=== PATIENT | female | born 1970 | race Caucasian/White ===

== ENCOUNTER 2017-06-17 00:03 | Emergency (ER) | payer SELFPAY, OTHER | END 2017-06-17 03:10 | disposition left against medical advice (07) | LOC: E/R 00:03 | DX: Z53.21 Procedure and treatment not carried out due to patient leaving prior to being seen by health care provider (principal) | CPT/HCPCS: 93005 ==

== ENCOUNTER 2017-10-04 16:36 | Emergency (ER) | payer OTHER ==
[2017-10-04] MEDS: ONDANSETRON 4 MG INJ IV (18:02)
[2017-10-04 18:54] LABS: ADD MAN DIFF? NO
[2017-10-04] MEDS: SOD CHLORIDE 0.9% 1,000 ML IV (18:54)
[2017-10-04 19:00] LABS: BASOPHILS % 0.1 % (0.0-2.0); EOSINOPHILS # 0.1 10^3/ul (0.0-0.5); EOSINOPHILS % 1.6 % (0.0-7.0); HEMOGLOBIN 10.9 g/dl (12.0-16.0); MEAN CORPUSCULAR HEMOGLOBIN 24.1 pg (29.0-33.0); MEAN CORPUSCULAR HGB CONC 30.3 g/dl (32.0-37.0); MEAN CORPUSCULAR VOLUME 79.5 fl (82.0-101.0); MONOCYTE # 0.5 10^3/ul (0.3-0.9); MONOCYTES % 7.2 % (0.0-11.0); NEUTROPHIL # 4.7 10^3/ul (1.6-7.5); NEUTROPHILS % 63.6 % (39.0-77.0); PLATELET COUNT 268 10^3/UL (140-415); RED BLOOD COUNT 4.53 10^6/ul (4.20-5.40); RED CELL DISTRIBUTION WIDTH 16.1 % (11.5-14.5)
[2017-10-04 19:00] LABS: WHITE BLOOD COUNT 7.4 10^3/ul (4.8-10.8)
[2017-10-04] MEDS: KETOROLAC 15 MG INJ IV ×2 (19:04→21:50)
[2017-10-04 19:23] LABS: ADD UMIC NO; UR ASCORBIC ACID NEGATIVE (NEGATIVE); UR BILIRUBIN (Dip) NEGATIVE (NEGATIVE); UR BLOOD (Dip) NEGATIVE (NEGATIVE); UR CLARITY CLEAR (CLEAR); UR COLOR STRAW (YELLOW); UR GLUCOSE (Dip) NEGATIVE (NEGATIVE); UR KETONES (Dip) NEGATIVE (NEGATIVE); UR LEUKOCYTE ESTERASE (Dip) NEGATIVE Leu/ul (NEGATIVE); UR NITRITE (Dip) NEGATIVE (NEGATIVE); UR SPECIFIC GRAVITY (Dip) 1.011 (1.003-1.030); UR TOTAL PROTEIN (Dip) NEGATIVE (NEGATIVE); UR UROBILINOGEN (Dip) NEGATIVE (NEGATIVE)
[2017-10-04 19:34] LABS: ALANINE AMINOTRANSFERASE 41 IU/L (13-69); ALBUMIN 3.9 g/dl (3.3-4.9); ALBUMIN/GLOBULIN RATIO 1.02; ALKALINE PHOSPHATASE 81 IU/L (42-121); ANION GAP 13 (8-16); ASPARTATE AMINO TRANSFERASE 37 IU/L (15-46); BILIRUBIN,INDIRECT 0.3 mg/dl (0-1.1); BILIRUBIN,TOTAL 0.3 mg/dl (0.2-1.3); BLOOD UREA NITROGEN 13 mg/dl (7-20); CALCIUM 9.1 mg/dl (8.4-10.2); CARBON DIOXIDE 28 mmol/L (21-31); CHLORIDE 110 mmol/L (97-110); CREATININE 0.91 mg/dl (0.44-1.00); GLUCOSE 108 mg/dl (70-220); LIPASE 123 U/L (23-300); POTASSIUM 4.3 mmol/L (3.5-5.1); SODIUM 147 mmol/L (135-144); TOTAL PROTEIN 7.7 g/dl (6.1-8.1)
== END 2017-10-04 22:46 | disposition home or self-care (01) ==
LOC: FTE 16:36
DX: R10.31 Right lower quadrant pain (principal); I10 Essential (primary) hypertension; I25.10 Atherosclerotic heart disease of native coronary artery without angina pectoris; R19.07 Generalized intra-abdominal and pelvic swelling, mass and lump; R10.2 Pelvic and perineal pain
CPT/HCPCS: 74176; 80053; 81003; 81025; 83690; 85025; 96374; 96375; 96376; 99285-25

== ENCOUNTER 2017-12-04 16:24 | Emergency (ER) | payer OTHER ==
[2017-12-04 17:56] LABS: ADD UMIC YES; UR ASCORBIC ACID NEGATIVE (NEGATIVE); UR BACTERIA FEW /HPF (NONE SEEN); UR BILIRUBIN (Dip) NEGATIVE (NEGATIVE); UR BLOOD (Dip) 3+ mg/dL (NEGATIVE); UR CLARITY SLIGHTLY CLOUDY (CLEAR); UR COLOR YELLOW (YELLOW); UR GLUCOSE (Dip) NEGATIVE (NEGATIVE); UR KETONES (Dip) NEGATIVE (NEGATIVE); UR LEUKOCYTE ESTERASE (Dip) NEGATIVE Leu/ul (NEGATIVE); UR NITRITE (Dip) NEGATIVE (NEGATIVE); UR RBC 71 /HPF (0-5); UR SPECIFIC GRAVITY (Dip) 1.025 (1.003-1.030); UR SQUAMOUS EPITHELIAL CELL FEW /HPF (FEW); UR TOTAL PROTEIN (Dip) NEGATIVE (NEGATIVE); UR UROBILINOGEN (Dip) 1+ mg/dL (NEGATIVE); UR WBC 3 /HPF (0-5)
[2017-12-04] MEDS: KETOROLAC 30 MG INJ IM (18:14)
== END 2017-12-04 19:16 | disposition home or self-care (01) ==
LOC: FTE 16:24
DX: N83.201 Unspecified ovarian cyst, right side (principal); I10 Essential (primary) hypertension; I25.10 Atherosclerotic heart disease of native coronary artery without angina pectoris
CPT/HCPCS: 76775; 76830; 76856; 81001; 81025; 96372; 99285-25

== ENCOUNTER 2017-12-07 17:03 | Emergency (ER) | payer OTHER ==
[2017-12-07] MEDS: ONDANSETRON 4 MG INJ IV ×2 (19:25→20:51)
[2017-12-07] MEDS: KETOROLAC 30 MG INJ IV (19:27)
[2017-12-07] MEDS: SOD CHLORIDE 0.9% 1,000 ML IV (19:31)
[2017-12-07 19:39] LABS: ADD MAN DIFF? NO
[2017-12-07 19:40] LABS: BASOPHILS % 0.2 % (0.0-2.0); EOSINOPHILS # 0.1 10^3/ul (0.0-0.5); EOSINOPHILS % 1.3 % (0.0-7.0); HEMATOCRIT 36.9 % (37.0-47.0); HEMOGLOBIN 11.2 g/dl (12.0-16.0); LYMPHOCYTES # 2.1 10^3/ul (0.8-2.9); LYMPHOCYTES % 21.5 % (15.0-51.0); MEAN CORPUSCULAR HEMOGLOBIN 24.2 pg (29.0-33.0); MEAN CORPUSCULAR HGB CONC 30.4 g/dl (32.0-37.0); MEAN CORPUSCULAR VOLUME 79.7 fl (82.0-101.0); MEAN PLATELET VOLUME 10.2 fl (7.4-10.4); MONOCYTE # 0.7 10^3/ul (0.3-0.9); MONOCYTES % 7.6 % (0.0-11.0); NEUTROPHIL # 6.6 10^3/ul (1.6-7.5); PLATELET COUNT 282 10^3/UL (140-415); RED BLOOD COUNT 4.63 10^6/ul (4.20-5.40); RED CELL DISTRIBUTION WIDTH 15.7 % (11.5-14.5)
[2017-12-07 19:40] LABS: WHITE BLOOD COUNT 9.6 10^3/ul (4.8-10.8)
[2017-12-07 19:56] LABS: ALANINE AMINOTRANSFERASE 32 IU/L (13-69); ALBUMIN 4.1 g/dl (3.3-4.9); ALKALINE PHOSPHATASE 74 IU/L (42-121); ANION GAP 14 (8-16); ASPARTATE AMINO TRANSFERASE 29 IU/L (15-46); BILIRUBIN,INDIRECT 0.3 mg/dl (0-1.1); BILIRUBIN,TOTAL 0.3 mg/dl (0.2-1.3); BLOOD UREA NITROGEN 11 mg/dl (7-20); CALCIUM 8.7 mg/dl (8.4-10.2); CARBON DIOXIDE 30 mmol/L (21-31); CHLORIDE 103 mmol/L (97-110); CREATININE 0.74 mg/dl (0.44-1.00); GLUCOSE 87 mg/dl (70-220); LIPASE 62 U/L (23-300); POTASSIUM 3.8 mmol/L (3.5-5.1); SODIUM 143 mmol/L (135-144); TOTAL PROTEIN 7.5 g/dl (6.1-8.1)
[2017-12-07 20:05] LABS: INR 0.94; PROTIME 12.7 Sec (11.9-14.9)
[2017-12-07 20:06] LABS: PARTIAL THROMBOPLASTIN TIME 26.4 Sec (25.0-35.0)
[2017-12-07 20:08] LABS: TROPONIN-I < 0.012 ng/ml (0.000-0.120)
[2017-12-07] MEDS: IOHEXOL 300MG/ML 150 ML BTL (20:17)
[2017-12-07] MEDS: SOD CHLORIDE 0.9% 100 ML (20:17)
== END 2017-12-07 23:13 | disposition home or self-care (01) ==
LOC: FTE 17:03
DX: R10.2 Pelvic and perineal pain (principal); I10 Essential (primary) hypertension; I25.10 Atherosclerotic heart disease of native coronary artery without angina pectoris
CPT/HCPCS: 36415; 74177; 80053; 81025; 83690; 84484; 85025; 85610; 85730; 93005; 96361; 96374; 96375; 96376; 99285-25

== ENCOUNTER 2017-12-15 18:32 | Emergency (ER) | payer OTHER ==
[2017-12-15] MEDS: IBUPROFEN 600 MG TAB PO (23:36)
== END 2017-12-16 00:21 | disposition home or self-care (01) ==
LOC: E/R 12-16 00:21
DX: R51 Headache (principal); I10 Essential (primary) hypertension; I25.10 Atherosclerotic heart disease of native coronary artery without angina pectoris; R42 Dizziness and giddiness; R40.2142 Coma scale, eyes open, spontaneous, at arrival to emergency department; R40.2252 Coma scale, best verbal response, oriented, at arrival to emergency department; R40.2362 Coma scale, best motor response, obeys commands, at arrival to emergency department
CPT/HCPCS: 70450; 93005; 99284-25

== ENCOUNTER 2017-12-22 11:16 | Emergency (ER) | payer OTHER ==
[2017-12-22 12:25] LABS: TROPONIN-I < 0.010 ng/ml (0.000-0.120)
== END 2017-12-22 13:02 | disposition home or self-care (01) ==
LOC: E/R 11:16
DX: R07.9 Chest pain, unspecified (principal); R20.2 Paresthesia of skin; I10 Essential (primary) hypertension; E66.9 Obesity, unspecified; Z68.41 Body mass index [BMI] 40.0-44.9, adult
CPT/HCPCS: 36415; 84484; 99283

== ENCOUNTER 2018-02-25 01:53 | Observation (INO) | payer OTHER ==
[2018-02-25] MEDS ORDERED: ONDANSETRON 4 MG INJ IV ×2 (02:30→07:30)
[2018-02-25] MEDS ORDERED: NITROGLYCERIN (SL) 0.4 MG TAB SL ×2 (02:30→07:30)
[2018-02-25 03:09] LABS: ADD MAN DIFF? NO
[2018-02-25 03:15] LABS: WHITE BLOOD COUNT 6.5 10^3/ul (4.8-10.8)
[2018-02-25 03:15] LABS: BASOPHILS % 0.3 % (0.0-2.0); EOSINOPHILS # 0.1 10^3/ul (0.0-0.5); EOSINOPHILS % 1.5 % (0.0-7.0); HEMOGLOBIN 11.1 g/dl (12.0-16.0); LYMPHOCYTES # 1.7 10^3/ul (0.8-2.9); LYMPHOCYTES % 26.7 % (15.0-51.0); MEAN CORPUSCULAR VOLUME 79.9 fl (82.0-101.0); MEAN PLATELET VOLUME 10.3 fl (7.4-10.4); MONOCYTE # 0.5 10^3/ul (0.3-0.9); MONOCYTES % 8.3 % (0.0-11.0); NEUTROPHIL # 4.1 10^3/ul (1.6-7.5); NEUTROPHILS % 62.7 % (39.0-77.0); PLATELET COUNT 277 10^3/UL (140-415); RED BLOOD COUNT 4.63 10^6/ul (4.20-5.40)
[2018-02-25] MEDS: ACETAMINOPHEN 325 MG TAB PO ×2 (03:44→22:37)
[2018-02-25 03:45] LABS: CREATINE KINASE 53 IU/L (23-200)
[2018-02-25 03:51] LABS: TROPONIN-I < 0.012 ng/ml (0.000-0.120)
[2018-02-25 04:53] LABS: ANION GAP 12 (8-16); BLOOD UREA NITROGEN 13 mg/dl (7-20); CALCIUM 8.7 mg/dl (8.4-10.2); CARBON DIOXIDE 27 mmol/L (21-31); CHLORIDE 110 mmol/L (97-110); CREATININE 0.87 mg/dl (0.44-1.00); GLUCOSE 129 mg/dl (70-220); POTASSIUM 3.6 mmol/L (3.5-5.1); SODIUM 145 mmol/L (135-144)
[2018-02-25] MEDS ORDERED: NACL 0.9% 3 ML SYG IV (07:30)
[2018-02-25] MEDS ORDERED: ALBUTEROL/IPRATROPIUM (NEB) 3 ML AMP HHN (07:30)
[2018-02-25] MEDS: AMLODIPINE 10 MG TAB PO (08:19)
[2018-02-25] MEDS: ASPIRIN 81 MG TAB PO (08:19)
[2018-02-25] MEDS: LISINOPRIL 20 MG TAB PO (08:21)
[2018-02-25] MEDS: ENOXAPARIN 40 MG/0.4 ML SYG SC (08:23)
[2018-02-25 09:11] LABS: CK INDEX 0.4; CK-MB 0.23 ng/ml (0.0-2.4)
[2018-02-25 09:38] LABS: CREATINE KINASE 50 IU/L (23-200)
[2018-02-25 09:48] LABS: CK INDEX 0.5; CK-MB 0.27 ng/ml (0.0-2.4); TROPONIN-I < 0.012 ng/ml (0.000-0.120)
[2018-02-25 14:44] LABS: CREATINE KINASE 51 IU/L (23-200)
[2018-02-25 14:55] LABS: CK INDEX 0.5; CK-MB 0.24 ng/ml (0.0-2.4); TROPONIN-I < 0.012 ng/ml (0.000-0.120)
[2018-02-25] MEDS: GUAIFENESIN/DM 5ML CUP PO (20:56)
[2018-02-26 06:03] LABS: ADD MAN DIFF? NO
[2018-02-26] MEDS: ACETAMINOPHEN 325 MG TAB PO (06:17)
[2018-02-26 06:18] LABS: BASOPHILS % 0.3 % (0.0-2.0); EOSINOPHILS # 0.1 10^3/ul (0.0-0.5); HEMOGLOBIN 11.4 g/dl (12.0-16.0); LYMPHOCYTES # 1.9 10^3/ul (0.8-2.9); LYMPHOCYTES % 31.5 % (15.0-51.0); MEAN PLATELET VOLUME 10.3 fl (7.4-10.4); MONOCYTE # 0.6 10^3/ul (0.3-0.9); MONOCYTES % 9.8 % (0.0-11.0); NEUTROPHIL # 3.4 10^3/ul (1.6-7.5); NEUTROPHILS % 55.7 % (39.0-77.0); PLATELET COUNT 271 10^3/UL (140-415); RED BLOOD COUNT 4.75 10^6/ul (4.20-5.40); RED CELL DISTRIBUTION WIDTH 15.5 % (11.5-14.5)
[2018-02-26 06:18] LABS: WHITE BLOOD COUNT 6.1 10^3/ul (4.8-10.8)
[2018-02-26 06:39] LABS: IRON 42 ug/dl (35-150)
[2018-02-26 06:50] LABS: % IRON SATURATION 11 % SAT (22-52); TOTAL IRON BINDING CAPACITY 369 ug/dl (241-421)
[2018-02-26 06:54] LABS: ALANINE AMINOTRANSFERASE 71 IU/L (13-69); ALBUMIN 3.6 g/dl (3.3-4.9); ALKALINE PHOSPHATASE 98 IU/L (42-121); ANION GAP 9 (8-16); ASPARTATE AMINO TRANSFERASE 63 IU/L (15-46); BILIRUBIN,INDIRECT 0.1 mg/dl (0-1.1); BILIRUBIN,TOTAL 0.1 mg/dl (0.2-1.3); BLOOD UREA NITROGEN 10 mg/dl (7-20); CALCIUM 8.7 mg/dl (8.4-10.2); CARBON DIOXIDE 29 mmol/L (21-31); CHLORIDE 109 mmol/L (97-110); CREATININE 0.73 mg/dl (0.44-1.00); GLUCOSE 119 mg/dl (70-220); MAGNESIUM 2.1 mg/dl (1.7-2.5); POTASSIUM 3.9 mmol/L (3.5-5.1); SODIUM 143 mmol/L (135-144); TOTAL PROTEIN 7.2 g/dl (6.1-8.1)
[2018-02-26] MEDS: AMLODIPINE 10 MG TAB PO (08:51)
[2018-02-26] MEDS: LISINOPRIL 20 MG TAB PO (08:51)
[2018-02-26] MEDS: ASPIRIN 81 MG TAB PO (08:51)
[2018-02-26] MEDS: ENOXAPARIN 40 MG/0.4 ML SYG SC (09:01)
== END 2018-02-26 18:05 | disposition home or self-care (01) ==
LOC: 6WM 01:53
DX: R07.89 Other chest pain (principal); I10 Essential (primary) hypertension; E66.01 Morbid (severe) obesity due to excess calories; Z68.41 Body mass index [BMI] 40.0-44.9, adult; Z79.82 Long term (current) use of aspirin; R94.31 Abnormal electrocardiogram [ECG] [EKG]; I45.10 Unspecified right bundle-branch block; D64.9 Anemia, unspecified
CPT/HCPCS: 80048; 80053; 82550; 82553; 82728; 83540; 83735; 84443; 84484; 85025; 93005; 93306; 99217; G0378

== ENCOUNTER 2018-08-16 18:06 | Emergency (ER) | payer OTHER ==
[2018-08-16] MEDS: morphine 4 MG/ML VIAL IV (19:31)
[2018-08-16] MEDS: ONDANSETRON 4 MG INJ IV ×2 (19:31→20:45)
[2018-08-16 19:36] LABS: ADD MAN DIFF? NO
[2018-08-16 19:37] LABS: BASOPHILS % 0.4 % (0.0-2.0); EOSINOPHILS # 0.1 10^3/ul (0.0-0.5); EOSINOPHILS % 1.5 % (0.0-7.0); HEMATOCRIT 38.6 % (37.0-47.0); HEMOGLOBIN 11.7 g/dl (12.0-16.0); LYMPHOCYTES # 1.8 10^3/ul (0.8-2.9); LYMPHOCYTES % 22.9 % (15.0-51.0); MEAN CORPUSCULAR HEMOGLOBIN 23.8 pg (29.0-33.0); MEAN CORPUSCULAR HGB CONC 30.3 g/dl (32.0-37.0); MEAN CORPUSCULAR VOLUME 78.5 fl (82.0-101.0); MEAN PLATELET VOLUME 9.9 fl (7.4-10.4); MONOCYTE # 0.8 10^3/ul (0.3-0.9); MONOCYTES % 9.6 % (0.0-11.0); NEUTROPHIL # 5.2 10^3/ul (1.6-7.5); NEUTROPHILS % 65.2 % (39.0-77.0); PLATELET COUNT 263 10^3/UL (140-415); RED BLOOD COUNT 4.92 10^6/ul (4.20-5.40); RED CELL DISTRIBUTION WIDTH 16.6 % (11.5-14.5); URINE BLOOD (Dip) POC 2+ (NEGATIVE); URINE GLUCOSE (Dip) POC Negative (NEGATIVE); URINE KETONES (Dip) POC Negative (NEGATIVE); URINE LEUKOCYTE EST (Dip) POC Negative (NEGATIVE); URINE NITRITE (Dip) POC Negative (NEGATIVE); URINE TOTAL PROTEIN POC Trace (NEGATIVE)
[2018-08-16 19:54] LABS: ANION GAP 7 (5-13); BLOOD UREA NITROGEN 14 mg/dl (7-20); CALCIUM 9.2 mg/dl (8.4-10.2); CARBON DIOXIDE 27 mmol/L (21-31); CHLORIDE 107 mmol/L (97-110); CREATININE 0.65 mg/dl (0.44-1.00); Estimated GFR > 60 mL/min (>60); GLUCOSE 89 mg/dl (70-220); POTASSIUM 3.8 mmol/L (3.5-5.1); SODIUM 141 mmol/L (135-144)
== END 2018-08-16 22:50 | disposition home or self-care (01) ==
LOC: E/R 18:06
DX: N83.202 Unspecified ovarian cyst, left side (principal); I10 Essential (primary) hypertension; I25.10 Atherosclerotic heart disease of native coronary artery without angina pectoris; Z79.82 Long term (current) use of aspirin
CPT/HCPCS: 36415; 74176; 76830; 76856; 80048; 81003; 81025; 84702; 85025; 96374; 96375; 96376; 99285-25

== ENCOUNTER 2019-01-23 18:46 | Emergency (ER) | payer OTHER ==
[2019-01-23 19:27] LABS: ADD MAN DIFF? NO
[2019-01-23] MEDS: ONDANSETRON 4 MG INJ IV (19:27)
[2019-01-23] MEDS: morphine 2 MG INJ IV (19:27)
[2019-01-23] MEDS: NITROGLYCERIN 2% 1 GM OINT PKT TD (19:27)
[2019-01-23] MEDS: ASPIRIN 325 MG TAB PO (19:27)
[2019-01-23 19:35] LABS: WHITE BLOOD COUNT 7.5 10^3/ul (4.8-10.8)
[2019-01-23 19:35] LABS: BASOPHILS % 0.1 % (0.0-2.0); EOSINOPHILS # 0.1 10^3/ul (0.0-0.5); EOSINOPHILS % 1.1 % (0.0-7.0); HEMOGLOBIN 12.4 g/dl (12.0-16.0); LYMPHOCYTES # 2.2 10^3/ul (0.8-2.9); LYMPHOCYTES % 30.1 % (15.0-51.0); MEAN CORPUSCULAR HGB CONC 30.2 g/dl (32.0-37.0); MEAN CORPUSCULAR VOLUME 82.7 fl (82.0-101.0); MEAN PLATELET VOLUME 9.6 fl (7.4-10.4); MONOCYTE # 0.6 10^3/ul (0.3-0.9); MONOCYTES % 7.4 % (0.0-11.0); NEUTROPHIL # 4.5 10^3/ul (1.6-7.5); NEUTROPHILS % 60.4 % (39.0-77.0); PLATELET COUNT 292 10^3/UL (140-415); RED BLOOD COUNT 4.96 10^6/ul (4.20-5.40); RED CELL DISTRIBUTION WIDTH 15.2 % (11.5-14.5)
[2019-01-23 19:56] LABS: ANION GAP 8 (5-13); BLOOD UREA NITROGEN 15 mg/dl (7-20); CALCIUM 9.3 mg/dl (8.4-10.2); CARBON DIOXIDE 31 mmol/L (21-31); CHLORIDE 104 mmol/L (97-110); CREATININE 0.97 mg/dl (0.44-1.00); Estimated GFR > 60 mL/min (>60); GLUCOSE 109 mg/dl (70-220); POTASSIUM 3.8 mmol/L (3.5-5.1); SODIUM 143 mmol/L (135-144)
[2019-01-23 20:07] LABS: TROPONIN-I < 0.012 ng/ml (0.000-0.120)
[2019-01-23] MEDS ORDERED: ONDANSETRON 4 MG INJ IV (21:00)
[2019-01-23] MEDS ORDERED: ACETAMINOPHEN 325 MG TAB PO (21:00)
[2019-01-23] MEDS: morphine 4 MG/ML VIAL IV (21:52)
[2019-01-24] MEDS ORDERED: NITROGLYCERIN (SL) 0.4 MG TAB SL (00:30)
[2019-01-24] MEDS ORDERED: ALBUTEROL/IPRATROPIUM (NEB) 3 ML AMP HHN (00:30)
[2019-01-24] MEDS ORDERED: ONDANSETRON 4 MG INJ IV (00:30)
[2019-01-24] MEDS ORDERED: ALBUTEROL HFA 8 GM INHALER INH (00:30)
[2019-01-24] MEDS ORDERED: ACETAMINOPHEN 325 MG TAB PO (00:30)
[2019-01-24] MEDS ORDERED: NACL 0.9% 3 ML SYG IV (00:30)
[2019-01-24] MEDS: DIPHENHYDRAMINE 50 MG INJ IV (00:52)
[2019-01-24 01:18] LABS: CREATINE KINASE 63 IU/L (23-200)
[2019-01-24 01:31] LABS: CK-MB 0.62 ng/ml (0.0-2.4); TROPONIN-I < 0.012 ng/ml (0.000-0.120)
[2019-01-24 07:28] LABS: ADD MAN DIFF? NO
[2019-01-24 07:30] LABS: WHITE BLOOD COUNT 6.5 10^3/ul (4.8-10.8)
[2019-01-24 07:30] LABS: BASOPHILS % 0.3 % (0.0-2.0); EOSINOPHILS # 0.1 10^3/ul (0.0-0.5); EOSINOPHILS % 1.5 % (0.0-7.0); HEMATOCRIT 38.4 % (37.0-47.0); HEMOGLOBIN 11.5 g/dl (12.0-16.0); LYMPHOCYTES # 1.8 10^3/ul (0.8-2.9); LYMPHOCYTES % 28.3 % (15.0-51.0); MEAN CORPUSCULAR HEMOGLOBIN 25.2 pg (29.0-33.0); MEAN CORPUSCULAR HGB CONC 29.9 g/dl (32.0-37.0); MEAN CORPUSCULAR VOLUME 84.2 fl (82.0-101.0); MEAN PLATELET VOLUME 9.7 fl (7.4-10.4); MONOCYTE # 0.6 10^3/ul (0.3-0.9); MONOCYTES % 9.5 % (0.0-11.0); NEUTROPHIL # 3.9 10^3/ul (1.6-7.5); NEUTROPHILS % 59.8 % (39.0-77.0); PLATELET COUNT 260 10^3/UL (140-415); RED BLOOD COUNT 4.56 10^6/ul (4.20-5.40); RED CELL DISTRIBUTION WIDTH 15.2 % (11.5-14.5)
[2019-01-24 07:34] LABS: CREATINE KINASE 57 IU/L (23-200)
[2019-01-24 07:44] LABS: CK-MB 0.56 ng/ml (0.0-2.4); TROPONIN-I < 0.012 ng/ml (0.000-0.120)
[2019-01-24 08:11] LABS: HEMOGLOBIN A1C 5.4 % (0-5.9)
[2019-01-24 08:12] LABS: ALANINE AMINOTRANSFERASE 43 IU/L (13-69); ALBUMIN 3.4 g/dl (3.3-4.9); ALKALINE PHOSPHATASE 73 IU/L (42-121); ANION GAP 7 (5-13); ASPARTATE AMINO TRANSFERASE 62 IU/L (15-46); BILIRUBIN,INDIRECT 0.3 mg/dl (0-1.1); BILIRUBIN,TOTAL 0.3 mg/dl (0.2-1.3); BLOOD UREA NITROGEN 18 mg/dl (7-20); CALCIUM 8.4 mg/dl (8.4-10.2); CARBON DIOXIDE 28 mmol/L (21-31); CHLORIDE 105 mmol/L (97-110); CHOL/HDL RATIO 3.2 RATIO; CHOLESTEROL 101 mg/dl (100-200); CREATININE 0.85 mg/dl (0.44-1.00); Estimated GFR > 60 mL/min (>60); GLUCOSE 109 mg/dl (70-220); HDL CHOLESTEROL 31 mg/dl (34-88); LDL CHOLESTEROL,CALCULATED 54 mg/dl; MAGNESIUM 2.2 mg/dl (1.7-2.5); POTASSIUM 4.4 mmol/L (3.5-5.1); SODIUM 140 mmol/L (135-144); TOTAL PROTEIN 7.6 g/dl (6.1-8.1); TRIGLYCERIDES 80 mg/dl (0-149)
[2019-01-24] MEDS: AMLODIPINE 10 MG TAB PO ×2 (09:50→10:00)
[2019-01-24] MEDS: ASPIRIN (EC) 81 MG TAB PO ×2 (09:50→10:00)
[2019-01-24] MEDS: LISINOPRIL 20 MG TAB PO ×2 (09:50→10:10)
== END 2019-01-24 11:05 | disposition left against medical advice (07) ==
LOC: E/R 01-24 11:05
DX: I10 Essential (primary) hypertension (principal); I25.10 Atherosclerotic heart disease of native coronary artery without angina pectoris; Z79.82 Long term (current) use of aspirin
CPT/HCPCS: 36415; 71045; 80048; 80053; 80061; 82550; 82553; 83036; 83735; 84443; 84484; 85025; 93005; 96374; 96375; 96376; 99285-25